=== PATIENT | male | born 1970 | race Caucasian/White ===

== ENCOUNTER → 2017-07-12 | Outpatient (CLI) | payer BC ==
[~2017-07-12] MED LIST: COMPOUND CREAM; META1TAB22 PO; METH10TA2 PO; OXYC7.5T37 PO
--- NOTE | 2017-07-12 10:14 | DIAGNOSTIC IMAGING REPORT ---
CT OF THE NECK WITHOUT CONTRAST CLINICAL HISTORY: Spinal accessory nerve disorder. Cervical disc degeneration. 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 COMPARISON STUDY: No previous studies for comparison. TECHNIQUE: Axial images of the neck were obtained without IV contrast. The cervical spine CT will be reported separately. FINDINGS: Visualized portions of the intracranial contents are unremarkable on this unenhanced exam. Orbits are within normal limits. There is no significant sinus disease. Mastoid air cells are clear. Evaluation of the neck is suboptimal on this unenhanced exam. The parotid and submandibular glands are unremarkable. The epiglottis is normal. No mucosal lesion is identified although these may be occult by CT. No enlarged cervical lymph nodes are present. No cervical mass is present on this unenhanced exam. Lung apices are clear. A C5-C6 anterior discectomy and fusion is better depicted on the cervical spine CT. IMPRESSION: 1. No significant abnormality within the neck on unenhanced exam. No cervical lymphadenopathy or masses. 2. Status post C5-C6 anterior discectomy and fusion which is better depicted on the cervical spine CT. Electronically signed by: Noe Larkin M.D. 07/12/2017 10:13 AM Dictated Date/Time: 07/12/2017 10:04 AM
--- NOTE | 2017-07-12 10:30 | DIAGNOSTIC IMAGING REPORT ---
CERVICAL SPINE W/O CLINICAL HISTORY: 46 years-old Male presenting with SPINAL ACCESSORY NERVE DISORDER, cervical disc degeneration, neck pain, right arm pain. TECHNIQUE: Multidetector CT of the cervical spine was performed without the use of intravenous contrast. IV contrast: None. A dose lowering technique was used consistent with the principles of ALARA (as low as reasonably achievable). COMPARISON: Correlation made to plain radiographs of the cervical spine from 10/26/2011. CT DOSE (mGy.cm): The estimated cumulative dose is 543.73. FINDINGS: Fermenter topogram: Unremarkable. Normal cervical lordosis. Redemonstration of anterior cervical discectomy and fusion at C5-6 with interbody spacer. Mild posterior bony spurring at this level. Nonoperative levels demonstrate normal vertebral body heights and alignment. No acute fracture or subluxation. Mild right neural foraminal narrowing results at the operative level as well as at C3-4 on the right secondary to uncovertebral hypertrophy. No other degenerative change. Paraspinal soft tissues normal. Lung apices clear. IMPRESSION: Postsurgical changes of C5-6 anterior discectomy and fusion with mild posterior bony spurring and mild right neural foraminal narrowing. Mild right neural foraminal narrowing at C3-4 also noted. The true extent of neural foraminal narrowing would be better demonstrated with MR. No acute osseous injury. Electronically signed by: Rasheed Busby M.D. 07/12/2017 10:29 AM Dictated Date/Time: 07/12/2017 10:19 AM
== END | disposition home or self-care (01) ==
LOC: C.CTS 09:33
PROVIDERS: ATTEND Physical Medicine & Rehabilitation
DX: G52.8 Disorders of other specified cranial nerves (principal); M50.322 Other cervical disc degeneration at C5-C6 level